=== PATIENT | male | born 1965 | race American Indian/Alaskan Native ===

== ENCOUNTER 2021-08-30 12:25 | Emergency (ER) | payer BC ==
[2021-08-30 13:07] VITALS: BP 126/80
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
== END 2021-08-30 14:00 | disposition home or self-care (01) ==
LOC: ED 12:25
DX: S39.012A Strain of muscle, fascia and tendon of lower back, initial encounter (principal); Z98.890 Other specified postprocedural states; V89.2XXA Person injured in unspecified motor-vehicle accident, traffic, initial encounter; Y93.89 Activity, other specified; Y92.89 Other specified places as the place of occurrence of the external cause; Y99.8 Other external cause status
CPT/HCPCS: 99282